=== PATIENT | male | born 1975 | race Caucasian/White ===

== ENCOUNTER 2021-09-24 02:56 | Emergency (ER) | payer OTHER ==
[2021-09-24 03:05] VITALS: BP 122/86
--- NOTE | 2021-09-24 03:46 | ED Physician Documentation ---
PD HPI LOWER EXT INJURY - Stated complaint Stated Complaint: L KNEE PX - Chief complaint Chief Complaint: Ext Problem - History obtained from History obtained from: Patient - History of Present Illness PD HPI LOW EXT INJURY LOCATION: Left, Knee Type of injury: Blunt / blow Where injury occurred: Home Timing - onset: Enter time (17:00), Yesterday Timing - details: Abrupt onset, Still present Pain level now: 7 Improved by: Rest, Immobilization Worsened by: Moving, Palpating Associated symptoms: No: Weakness, Numbness Similar symptoms before: Has not had sx before Recently seen: Not recently seen - Additional information Additional information: at approximately 5 PM yesterday, patient was walking into his house from outside when his large dog ran by him, striking the back of his left knee which then slightly buckled before striking the door frame; this was associated with sudden onset severe left knee pain. the pain is distinctly worse with movement. The pain is predominantly at the patella and deep to patella Review of Systems Skin: reports: Reviewed and negative Musculoskeletal: reports: Joint pain, Pain with weight bearing. denies: Joint swelling Neurologic: denies: Focal weakness, Numbness PD PAST MEDICAL HISTORY - Past Medical History Past Medical History: No - Past Surgical History Past Surgical History: Yes Ortho: Spine surgery - Present Medications Home Medications: Ambulatory Orders Medication Instructions Recorded Confirmed Zolpidem Tartrate [Ambien] 5 mg PO DAILY 09/17/14 09/17/14 HYDROcod/ACETAM 5/325 [[place] 5/325] 1 - 2 tablet PO Q6H PRN #14 tablet 09/24/21 - Allergies Allergies/Adverse Reactions: Allergies Allergy/AdvReac Type Severity Reaction Status Date / Time No Known Drug Allergies Allergy Verified 09/24/21 03:06 - Social History Does the pt smoke?: Yes Smoking Status: Current every day smoker Does the pt drink ETOH?: Yes Does the pt have substance abuse?: No - Immunizations Immunizations are current?: Yes Immunizations: TDAP current <10years PD ED PE NORMAL - Vitals Vital signs reviewed: Yes - General General: Alert and oriented X 3, Well developed/nourished, Other (NAD at rest, obvious painful distress with movement involving left knee) - Derm Derm: Normal color, Warm and dry - Extremities Extremities: No deformity, No edema PD ED PE EXPANDED - Extremities Extremities: Tenderness (direct left patellar tenderness to palpation, mild/moderate TTP left tibial tuberosity), Limited ROM (most comfortable with left knee in full extension; obvious painful distress limits most any flexion of left knee). No: Swelling, Bruising, Abrasion, Laceration Results - Vitals Vitals: Oxygen O2 Source Room air - Rads (name of study) left knee xrays Radiology: Prelim report reviewed, See rad report PD MEDICAL DECISION MAKING - ED course Complexity details: reviewed results, re-evaluated patient, considered differential, d/w patient ED course: injury/pain is limited to left knee. No obvious deformity on exam, TTP of patella. Left knee xrays are unremarkable (incidental note of superior patellar enthesophyte). Results reviewed with patient. He is given vicodin in ED and reports adequate pain relief with this. Also given crutches and knee immobilizer is placed I am prescribing a short course of short-acting opioid pain medication for this patient. I have reviewed the patients E [employer] and no concerning findings were noted. I have discussed that the opioids are for short term therapy only, and will not be refilled from the ED Departure - Departure Disposition: 01 Home, Self Care Clinical Impression: Knee sprain Qualifiers: Encounter type: initial encounter Involved ligament of knee: unspecified ligament Laterality: left Qualified Code(s): S83.92XA - Sprain of unspecified site of left knee, initial encounter Condition: Good Instructions: ED Crutch Walking, ED Immobilizer Knee, ED Sprain Knee Follow-Up: DREW FORD MD [Primary Care Provider] - Prescriptions: HYDROcod/ACETAM 5/325 [[place] 5/325] 1 - 2 tablet PO Q6H PRN #14 tablet PRN Reason: Pain Comments: Follow up with your primary care provider in 3-5 days for reevaluation. A prescription for hydrocodone/acetaminophen (vicodin) has been electronically submitted to [facility]'s pharmacy in [place]. I am prescribing a short course of narcotic pain medication for you. These are potentially dangerous and addictive medications that should be used carefully. These medications may constipate you. Take an kwpt-zyj-fbtsyxl stool softener (docusate) twice daily with plenty of water while taking these medications. If you go 24 hours without a bowel movement, take shxc-zsp-keqxevm miralax, per package instructions. Do not drink or drive while taking these medications. If you received narcotic or sedating medications while in the emergency department, do not drive for 24 hours. Store this medication in a safe, secure place and out of reach of children. It is a violation of federal law to give or sell this medication to another person or to use in a manner other than prescribed. The ED will not refill narcotic prescriptions, including prescriptions lost or stolen. To dispose of unwanted medications: 1. [facility] at [address] in [place] has a medication drop box. They accept prescription medications (in pill form) Saturday through Saturday 9:00 a.m. to 5:00 p.m. 2. [facility] [employer] [facility] accepts prescription medications (in pill form only) for disposal year round. Call for more information. 3. Contact the [facility] for the next [facility] sponsored prescription drug collection event. , [phone], or [phone]; Discharge Date/Time: 09/24/21 05:59
[2021-09-24] MEDS ORDERED: HYDROcod/ACETAM 5/325 MG TABLET PO STA (03:59)
--- NOTE | 2021-09-24 07:37 | XRAY Report ---
PROCEDURE: Knee 4 View LT INDICATIONS: injury, left knee pain TECHNIQUE: 4 views of the left knee(s) were acquired. COMPARISON: None. FINDINGS: BONES/JOINT: No acute, displaced fracture or dislocation. No substantial suprapatellar joint effusio n. Superior patellar enthesophyte. SOFT TISSUES: No significant abnormality. IMPRESSION: 1.No acute osseous abnormality. Concordant interpretation with preliminary report. Reviewed by: Oumar Cavanaugh MD on 09/24/2021 7:35 AM PDT Approved by: Oumar Cavanaugh MD on 09/24/2021 7:35 AM PDT Station ID: [id number]
== END 2021-09-24 05:59 | disposition home or self-care (01) ==
LOC: ED 02:56
DX: S83.92XA Sprain of unspecified site of left knee, initial encounter (principal); W54.1XXA Struck by dog, initial encounter; F17.200 Nicotine dependence, unspecified, uncomplicated
CPT/HCPCS: 73564; 99283; A9270